=== PATIENT | female | born 1980 | race Caucasian/White ===

== ENCOUNTER 2023-07-26 07:40 | Outpatient (CLI) | payer BC, SELFPAY | END 2023-07-26 07:41 | disposition home or self-care (01) | PROVIDERS: PCP Physician Assistant Medical; Visit Provider Physician Assistant Medical | DX: Z13.220 Encounter for screening for lipoid disorders (principal); Z13.29 Encounter for screening for other suspected endocrine disorder; Z13.228 Encounter for screening for other metabolic disorders | CPT/HCPCS: 80053; 80061; 84443 ==

== ENCOUNTER 2023-10-14 13:54 | Outpatient (CLI) | payer BC, SELFPAY ==
--- NOTE | 2023-10-14 15:00 | CRLHL7_ITS ---
For Patients: As a result of the Century Cures Act, medical imaging exams and procedure reports are released immediately into your electronic medical record. You may view this report before your referring provider. If you have questions, please contact your health care provider. BILATERAL SCREENING MAMMOGRAM WITH COMPUTER-AIDED DETECTION AND TOMOSYNTHESIS TECHNIQUE: CC and MLO views were obtained. These mammographic images have been obtained using full-field digital technique. These mammographic images were interpreted with the benefit of computer-aided detection. Breast Tomosynthesis was used in this interpretation. COMPARISON FILM: Baseline. FINDINGS: The breasts are heterogeneously dense, which may obscure small masses. IMPRESSION: There is no radiographic evidence for malignancy. ASSESSMENT: BI-RADS Category 1: Negative RECOMMENDATION: Routine screening mammogram in 1 year. A lay language report of this examination will be provided to the patient. Wood Lord M.D. Diagnostic Radiologist [email or web address] SP/Dictated by: Wood Lord MD @ 10/18/2023 11:08:00 AM (Electronically Signed)
== END 2023-10-14 13:55 | disposition home or self-care (01) ==
PROVIDERS: PCP Physician Assistant Medical; Visit Provider Physician Assistant Medical
DX: Z12.31 Encounter for screening mammogram for malignant neoplasm of breast (principal); R92.2 Inconclusive mammogram
CPT/HCPCS: 77063; 77067

== ENCOUNTER 2023-11-25 08:49 | Outpatient (CLI) | payer BC, SELFPAY ==
--- NOTE | 2023-11-25 09:00 | CRLHL7_ITS ---
For Patients: As a result of the 21st Century Cures Act, medical imaging exams and procedure reports are released immediately into your electronic medical record. You may view this report before your referring provider. If you have questions, please contact your health care provider. INDICATION: Bloating and early satiety COMPARISON: None. TECHNIQUE: 1.1 mCi Tc99m sulfur colloid was administered orally in 4 oz. egg substitute, two slices of bread, 2 packs jam/jelly and 4 oz of water/juice. Images of the stomach and abdomen were obtained in the anterior and posterior projection over 240 minutes. FINDINGS: Visually there is normal gastric emptying. Geometric Mean Calculated % Activity Remainin minutes 100% 60 minutes 50% 120 minutes 21% 240 minutes 1% IMPRESSION: Normal gastric emptying. Dictated by To Marquez MD @ 11/25/2023 2:09:33 PM (Electronically Signed)
== END 2023-11-25 08:50 | disposition home or self-care (01) ==
LOC: NM 08:50
PROVIDERS: PCP Physician Assistant Medical; Visit Provider Internal Medicine Gastroenterology
DX: R14.0 Abdominal distension (gaseous) (principal); K58.1 Irritable bowel syndrome with constipation
CPT/HCPCS: 78264; A9541

== ENCOUNTER 2024-04-18 09:38 | Outpatient (CLI) | payer BC, SELFPAY | END 2024-04-18 09:39 | disposition home or self-care (01) | PROVIDERS: PCP Physician Assistant Medical; Visit Provider Physician Assistant Medical | DX: R21 Rash and other nonspecific skin eruption (principal); R53.83 Other fatigue | CPT/HCPCS: 80053; 82306; 82607; 82728; 84443; 86038; 86225 ==

== ENCOUNTER 2024-11-02 07:53 | Outpatient (CLI) | payer BC, SELFPAY | END 2024-11-02 07:54 | disposition home or self-care (01) | LOC: NFLDREF 11-03 14:56 | PROVIDERS: PCP Physician Assistant Medical; Referring Provider Physician Assistant Medical; Visit Provider Physician Assistant Medical | DX: Z00.00 Encounter for general adult medical examination without abnormal findings (principal); K58.1 Irritable bowel syndrome with constipation; K63.8219 Small intestinal bacterial overgrowth, unspecified; I73.00 Raynaud's syndrome without gangrene; Q61.3 Polycystic kidney, unspecified | CPT/HCPCS: 80053 ==

== ENCOUNTER 2025-01-31 07:23 | Outpatient (CLI) | payer BC, SELFPAY | END 2025-01-31 07:24 | disposition home or self-care (01) | LOC: NFLDREF 02-01 18:09 | PROVIDERS: PCP Physician Assistant Medical; Referring Provider Physician Assistant Medical; Visit Provider Physician Assistant Medical | DX: K90.0 Celiac disease (principal) | CPT/HCPCS: 82784; 86231; 86258; 86364 ==

== ENCOUNTER 2025-04-03 11:13 | Outpatient (CLI) | payer BC, SELFPAY ==
--- NOTE | 2025-04-03 11:30 | CRLHL7_ITS ---
For Patients: As a result of the Century Cures Act, medical imaging exams and procedure reports are released immediately into your electronic medical record. You may view this report before your referring provider. If you have questions, please contact your health care provider. INDICATION: BILATERAL SCREENING MAMMOGRAM, ASYMPTOMATIC 44 Y/O FEMALE COMPARISON: 10/14/2023 TECHNIQUE: Digital mammogram in CC and MLO projections including computer-aided detection (CAD) and tomosynthesis. BREAST COMPOSITION: There are scattered areas of fibroglandular density. FINDINGS: No suspicious findings. ASSESSMENT: BI-RADS 1 Negative RECOMMENDATION: Annual screening mammogram. A lay language report of this examination will be provided to the patient. Dictated by: Wood Lord MD @ 04/03/2025 12:11:54 (Electronically Signed)
== END 2025-04-03 11:14 | disposition home or self-care (01) ==
LOC: MAMMO 11:14
PROVIDERS: PCP Physician Assistant Medical; Visit Provider Physician Assistant Medical
DX: Z12.31 Encounter for screening mammogram for malignant neoplasm of breast (principal)
CPT/HCPCS: 77063; 77067